=== PATIENT | male | born 1960 | race African-American/Black ===

== ENCOUNTER 2019-07-23 19:15 | Emergency (ER) | payer OTHER ==
[~2019-07-23] VITALS: Ht 188 cm; Wt 78.9 kg
[2019-07-23 19:19] VITALS: Ht 188 cm; Wt 78.9 kg
[2019-07-23 22:51] VITALS: BP 159/96
== END 2019-07-23 22:51 | disposition home or self-care (01) ==
LOC: ED 19:15
DX: T20.20XA Burn of second degree of head, face, and neck, unspecified site, initial encounter (principal); T22.121A Burn of first degree of right elbow, initial encounter; T20.17XA Burn of first degree of neck, initial encounter; T31.0 Burns involving less than 10% of body surface; X14.1XXA Other contact with hot air and other hot gases, initial encounter; Y93.89 Activity, other specified; Y92.89 Other specified places as the place of occurrence of the external cause; Y99.8 Other external cause status
CPT/HCPCS: 90715; J2270; J2405; Q0092